=== PATIENT | male | born 1970 | race Caucasian/White ===

== ENCOUNTER 2016-08-19 13:16 | Emergency (ER) | payer OTHER ==
[~2016-08-19] VITALS: Ht 182.9 cm; Wt 75.7 kg
[2016-08-19 17:59] LABS: DEFINITIVE VIEW TRANSMISSION; Hemoglobin 10.4 g/dL (13.5-17.5); Mean Corpuscular Hemoglobin 31.3 pg (28.0-32.0); Mean Corpuscular Hgb Conc. 33.7 g/dL (32.0-36.0); Mean Corpuscular Volume 92.9 fL (80.0-100.0); Mean Platelet Volume 7.9 fL (7.4-10.4); Platelet Count (auto) 165 10^3/uL (140-450); White Blood Cell 8.5 10^3/uL (4.4-10.8)
[2016-08-19 18:06] LABS: Partial Thromboplastin Time 34.6 sec (22.64-33.71); Red Cell Distribution Width 20.5 % (11.6-16.0)
[2016-08-19 18:08] LABS: Metamyelocytes % 0; Myelocytes % 0; Promyelocytes % 0; Reactive Lymphocytes 0
[2016-08-19 18:11] LABS: INR 1.41 (0.9-1.15); Prothrombin Time 15.4 sec (9.37-12.3)
[2016-08-19 18:14] LABS: Albumin 2.8 g/dL (3.4-5.0); Alkaline Phosphatase 121 U/L (45-117); Anion Gap 8 (5-15); Aspartate Aminotransferase 77 U/L (15-37); BUN/Creatinine Ratio 8.6; Bilirubin, Total 3.1 mg/dL (0.2-1.0); Blood Urea Nitrogen 7 mg/dL (7-18); Calcium 8.8 mg/dL (8.5-10.1); Carbon Dioxide 25 mmol/L (21-32); Chloride 102 mmol/L (98-107); GFR African American 131 mL/min; GFR Non-African American 108 mL/min; Glucose 122 mg/dL (74-106); Potassium 3.2 mmol/L (3.5-5.1); Sodium 135 mmol/L (136-145); Total Protein 9.7 g/dL (6.4-8.2)
[2016-08-19 18:45] LABS: Anisocytosis Slight; Platelet Estimate Adequate
[2016-08-19] MEDS ORDERED: IOHEXOL 300 MG/ML 100ML BOTTLE IJ ONE (22:53)
[2016-08-19] MEDS ORDERED: ONDANSETRON HCL 4 MG/2 ML VIAL IV ONE (23:00)
[2016-08-19] MEDS ORDERED: MORPHINE SULFATE 4 MG/ML SYRG IV ONE (23:00)
[2016-08-19] MEDS ORDERED: SODIUM CHLORIDE 0.9% 1,000 ML IV ONE (23:00)
[2016-08-20 03:29] LABS: Urine Bilirubin Negative (Negative); Urine Blood Negative /uL (Negative); Urine Color Yellow (Yellow); Urine Glucose Normal (Normal); Urine Ketone Negative (Negative); Urine Mucus FEW (None Seen); Urine Nitrite Negative (Negative); Urine RBC 4 /hpf (0 - 3)
[2016-08-20 04:36] VITALS: BP 111/70
== END 2016-08-20 04:45 | disposition home or self-care (01) ==
LOC: EDBD 13:16 → ER 13:16
DX: R18.8 Other ascites (principal); F17.210 Nicotine dependence, cigarettes, uncomplicated; Z87.442 Personal history of urinary calculi
CPT/HCPCS: 36415; 74177; 80053; 81001; 84484; 85007; 85027; 85610; 85730; 96361; 96374; 96375; 99285; J2270; J2405; J7030; Q9967